=== PATIENT | female | born 1975 | race American Indian/Alaskan Native ===

== ENCOUNTER 2021-07-20 05:51 | Day surgery (SDC) | payer OTHER ==
[2021-07-20] MEDS ORDERED: fentaNYL 100 MCG/2 ML INJ IV PRN (06:00)
[2021-07-20] MEDS ORDERED: GABAPENTIN 300 MG CAP PO NR (06:00)
[2021-07-20] MEDS ORDERED: LACTATED RINGERS 1,000 ML IV SCH (06:00)
[2021-07-20] MEDS ORDERED: CELECOXIB 200 MG CAP PO NR (06:00)
[2021-07-20] MEDS ORDERED: ACETAMINOPHEN 500 MG TAB PO SCH (06:00)
[2021-07-20] MEDS ORDERED: MIDAZOLAM 2 MG/2 ML INJ IV NR (06:00)
[2021-07-20] MEDS ORDERED: SCOPOLAMINE TRANSDERMAL PATCH 72 HR TD NR (06:00)
[2021-07-20] MEDS ORDERED: methOCARBAMOL 1,000 MG in SODIUM CHLORIDE 0.9% 250ML 250 ML IV SCH (06:00)
[2021-07-20 07:12] LABS: Basophils # (Auto) 0.1 K/mm3 (0.0-0.1); Basophils % (Auto) 0.8 % (0.0-1.8); Eosinophils # (Auto) 0.3 K/mm3 (0.0-0.4); Eosinophils % (Auto) 4.9 % (0.0-4.3); Hematocrit 37.5 % (30.3-42.9); Hemoglobin 12.2 gm/dl (10.1-14.3); Lymphocytes # (Auto) 1.8 K/mm3 (1.2-5.4); Lymphocytes % (Auto) 30.1 % (13.4-35.0); Mean Corpuscular HGB Conc 33 % (30-34); Mean Corpuscular Volume 76 fl (79-97); Monocytes # (Auto) 0.5 K/mm3 (0.0-0.8); Monocytes % (Auto) 8.8 % (0.0-7.3); Platelet Count 301 K/mm3 (140-440); Red Blood Count 4.91 M/mm3 (3.65-5.03); Red Cell Distribution Width 17.4 % (13.2-15.2)
[2021-07-20] MEDS ORDERED: propofoL 200 MG/20 ML VIAL IV ONE (07:13)
[2021-07-20] MEDS ORDERED: HYDROmorphone 1 MG/1 ML INJ ONE (07:13)
[2021-07-20] MEDS ORDERED: LIDOCAINE MPF (2%) 20 MG/1 ML VIAL 5 ML ONE (07:13)
[2021-07-20] MEDS ORDERED: ROCURONIUM 50 MG/5 ML INJ IV ONE (07:18)
[2021-07-20] MEDS ORDERED: dexAMETHasone 4 MG/ML VIAL ONE (07:20)
[2021-07-20] MEDS ORDERED: cloNIDine/PF 1,000 MCG/10 ML VIAL EP ONE (07:21)
[2021-07-20] MEDS ORDERED: BUPIVACAINE-EPINEPHRINE/PF 0.25%-1:200,000 (30 ML) VIAL INFILTRATI ONE (07:21)
--- NOTE | 2021-07-20 07:43 | Short Stay Summary ---
Short Stay Documentation Date of service: 07/20/21 Narrative H&P: 45y/o with dysfunctional uterine bleeding and uterine fibroids. Recent ultrasound demonstrated an enlarged fibroid uterus measuring 14.6cm. The experiences heavy bleeding and pain with menses. She has elected for definitive surgical management. - History Principal diagnosis: Uterine fibroids Past Medical History: DVT, migraines, other (fibroids) Past Surgical History: , Other (sinus; tubal ligation) Social history: single - Allergies and Medications Current Medications: Allergies latex Allergy (Verified 07/18/21 16:25) Itching nickel Allergy (Verified 07/18/21 16:25) Rash Home Medications Medication Instructions Recorded Confirmed Last Taken Type Escitalopram [Lexapro] 10 mg PO DAILY 07/18/21 07/18/21 Unknown History Omeprazole 40 mg PO DAILY 07/18/21 07/18/21 Unknown History Active Medications Acetaminophen (Acetaminophen 500 Mg Tab) 1,000 mg PO PREOP GLENN Stop: 07/20/21 20:00 Celecoxib (Celecoxib 200 Mg Cap) 200 mg PO PREOP NR Stop: 07/20/21 20:00 Fentanyl (Fentanyl 100 Mcg/2 Ml Inj) 100 mcg IV ONCE PRN PRN Reason: sedation for nerve block Stop: 07/20/21 20:00 Gabapentin (Gabapentin 300 Mg Cap) 300 mg PO PREOP NR Stop: 07/20/21 20:00 Methocarbamol 1,000 mg/ Sodium (Chloride) 260 mls @ 250 mls/hr IV PREOP GLENN Stop: 07/20/21 20:00 Lactated Ringer's (Lactated Ringers) 1,000 mls @ 100 mls/hr IV DIRECT GLENN Stop: 07/20/21 23:59 Midazolam HCl (Midazolam 2 Mg/2 Ml Inj) 2 mg IV PREOP NR Stop: 07/20/21 20:00 Scopolamine (Scopolamine Transdermal Patch 72 Hr) 1 each TD PREOP NR Stop: 07/20/21 20:00 - Physical exam General appearance: no acute distress Integumentary: no rash HEENT: Atraumatic Lungs: Clear to auscultation Breasts: deferred Heart: Regular rate Gastrointestinal: normal Female Genitourinary: deferred Rectal Exam: deferred - Brief post op/procedure progress note Date of procedure: 05/25/22 Pre-op diagnosis: Dysfunctional uterine bleeding; symptomatic uterine fibroid Post-op diagnosis: same Procedure: Robotic hysterectomy and bilateral salpingo-oophorectomy Anesthesia: MONIQUE Surgeon: BETH SIMMS Estimated blood loss: other (100 mL) Pathology: list (Uterus, cervix, bilateral tubes, bilateral ovaries) Specimen disposition: to lab Condition: stable - Hospital course Hospital course: The patient was admitted the day of surgery underwent a robotic hysterectomy and BSO. Please see operative note for details of surgery. Her postoperative course was uneventful. - Disposition Condition at discharge: Good Disposition: 01 HOME / SELF CARE / HOMELESS Short Stay Discharge Plan Activity: other (Pelvic rest for 6 weeks) Diet: regular Additional Instructions: Patient has scheduled follow-up with Dr. Simms in 4 weeks No tub baths for 4 weeks but patient may shower Patient may drive in 2 weeks Pelvic rest for 6 weeks
[2021-07-20] MEDS ORDERED: METHYLENE BLUE 50 MG/10 ML AMP ONE (07:53)
[2021-07-20] MEDS ORDERED: BUPIVACAINE/PF (0.5%) 5 MG/1 ML 30 ML VIAL INFILTRATI ONE (07:53)
[2021-07-20] MEDS ORDERED: NEOMY 40 MG/POLYMYXIN B 200,000 UNITS/ML (GU) AMPULE IR ONE (07:54)
[2021-07-20] MEDS ORDERED: oxyCODONE /ACETAMINOPHEN 5-325MG TAB PO PRN (07:55)
[2021-07-20] MEDS ORDERED: ONDANSETRON 4 MG/2 ML INJ IV PRN (07:55)
[2021-07-20] MEDS ORDERED: HYDROmorphone 0.5 MG/0.5 ML INJ IV PRN (07:55)
--- NOTE | 2021-07-20 07:57 | Anesthesia Consultation ---
Anesthesia Consult and Med Hx Date of service: 07/20/21 - Airway Anesthetic Teeth Evaluation: Good ROM Head & Neck: Adequate Mental/Hyoid Distance: Adequate Mallampati Class: Class II Intubation Access Assessment: Probably Good - Pre-Operative Health Status ASA Pre-Surgery Classification: ASA1 Proposed Anesthetic Plan: General Nerve Block: TAP - Pulmonary Hx Smoking: No Hx Respiratory Symptoms: No - Cardiovascular System Hx Hypertension: No - Central Nervous System CVA: No Hx Psychiatric Problems: Yes (depression) - Endocrine Hx Renal Disease: No Hx Liver Disease: No Hx Insulin Dependent Diabetes: No Hx Non-Insulin Dependent Diabetes: No Hx Thyroid Disease: No - Additional Comments Anesthesia Medical History Comments: No hx anesthetic complications.
--- NOTE | 2021-07-20 07:57 | Anesthesia Day of Surgery ---
Anesthesia Day of Surgery - Day of Surgery Patient Examined: Yes Patient H&P Reviewed: Yes Patient is NPO: Yes
[2021-07-20] MEDS ORDERED: ceFAZolin/Water 2 GM/20 ML 2 GM/20 ML SYRINGE IV NR (08:00)
[2021-07-20] MEDS ORDERED: ePHEDrine SULFATE 50 MG/1 ML INJ ONE (08:50)
[2021-07-20] MEDS ORDERED: SODIUM CHLORIDE 0.9% IRR 1,500 ML BOTTLE IR ONE (09:12)
[2021-07-20] MEDS ORDERED: dexAMETHasone 20 MG/5 ML VIAL ONE (09:27)
[2021-07-20] MEDS ORDERED: ONDANSETRON 4 MG/2 ML INJ ONE (09:27)
[2021-07-20] MEDS ORDERED: GLYCOPYRROLATE 0.4 MG/2 ML INJ ONE (09:28)
[2021-07-20] MEDS ORDERED: KETOROLAC 30 MG/1 ML INJ ONE (09:28)
[2021-07-20] MEDS ORDERED: NEOSTIGMINE 10MG/10 ML INJ MDV ONE (09:28)
[2021-07-20] MEDS ORDERED: LACTATED RINGERS 1,000 ML ONE (09:29)
--- NOTE | 2021-07-20 09:30 | Operative Report ---
Operative Report Operative Report: Date of surgery: July 20, 2021 Preoperative diagnoses: Dysfunctional uterine bleeding; symptomatic uterine fib roid Postoperative diagnoses: Same as above Procedure: Robotic hysterectomy and bilateral salpingo-oophorectomy Surgeon: Francia Rojas M.D. Cable Tool Driller: Khai Bran Anesthesia: Gen. endotracheal anesthesia Estimated blood loss: 100 mL Pathology: Uterus, cervix, bilateral tubes and ovaries Indication: 45-year-old G 10 [id number] with a history of dysfunctional uterine bleeding and symptomatic uterine fibroids. The patient elected to undergo definitive surgical management. Procedure: The patient was taken to the operating room and given general endotracheal anesthesia without complication. She is prepped and draped in a normal sterile fashion. A bivalve speculum was placed in the patient's vagina and a single- tooth tenaculum placed on the anterior lip of the cervix. The uterus was sounded with the uterine sound. A stay suture was placed at 12 o'clock on the ectocervix. A [employer] uterine manipulator was placed in the bivalve speculum was then removed. Attention was then turned to the patient's abdomen where a 12 millimeter supra umbilical skin incision was then made. A Veress needle was placed and peritoneal entry was verified water-filled syringe. Insufflation of the peritoneal cavity was performed with CO2 gas. The 12 mm trocar was then placed under direct visualization. An additional 8 mm trocar was placed on the patient's left and right lateral side just opposite of the supraumbilical trocar. An additional 5 mm right lateral trocar was then placed as the accessory port. The Dwight Arnett device was used to close the fascia of the 12 mm incision. The patient was then placed in steep Trendelenburg. The da Bud robot was then engaged. A fenestrated forcep was placed in arm 2 and a vessel sealer was placed in arm 1. The surgeon then transferred to the surgical console. General survey revealed mildly enlarged uterus with normal tubes and ovaries bilaterally. The infundibulopelvic ligament was then isolated on the right. The vessel sealer was used to coagulate the ligament which was then transected. The tube and ovary were transected from the supply. The round ligament was then coagulated and transected also. The vesicouterine peritoneum was then entered from the patient's right side. The uterine vessels were then coagulated with the vessel sealer. The vessels were then transected . Attention was then turned to the patient's left side where the infundibulopelvic ligament and mesosalpinx were again isolated coagulated and transected. The vesical peritoneum was then entered from the left and joined in the midline. Peritoneum was reflected off of the lower uterine segment. Uterine vessels were then coagulated and then transected. The blood supply to the uterus was adequately contained, a posterior colpotomy was made. The V care ring was visualized. Posterior colpotomy was created with the monopolar scissors. The incision was continued circumferentially until anterior colpotomy was made. The cervix and uterus were amputated from the vaginal cuff. The uterus was then removed along with the tubes and ovaries bilaterally through the vagina and a warm laparotomy sponge was placed and maintain the pneumoperitoneum. The vaginal cuff was then closed in a running fashion with V lock suture. Irrigation of the pelvis was performed. Surgicel powder was applied to the incision. The skin was then reapproximated with 4-0 Monocryl. The tissue was sent to pathology which included the cervix, uterus, tubes and ovaries. The patient was then successfully extubated. She was then taken to the recovery room in stable condition. All sponge laps and needle counts were correct x2.
[2021-07-20] MEDS ORDERED: ALBUMIN HUMAN 5% (12.5 GM/250 ML) INJ IV NR (11:00)
[2021-07-20] MEDS ORDERED: SIMETHICONE 80 MG CHEW TAB PO ONE (12:35)
--- NOTE | 2021-07-20 13:44 | Post Anesthesia Evaluation ---
- Post Anesthesia Evaluation Patient Participated: Yes Airway Patent: Yes Stable Respiratory Function: Yes Nausea/Vomiting: No Temp > 96.8F: Yes Pain Manageable: Yes Adequeate Hydration: Yes (hypotensive on arrival to PACU; resolved w/ IVF. Returned to baseline. ) Anesthesia Complications: No
[2021-07-20 17:54] VITALS: BP 120/74
== END 2021-07-20 13:20 | disposition home or self-care (01) ==
LOC: OR 05:51
PROVIDERS: ATTEND Obstetrics & Gynecology
DX: N93.8 Other specified abnormal uterine and vaginal bleeding (principal); N85.8 Other specified noninflammatory disorders of uterus; N83.201 Unspecified ovarian cyst, right side; N83.202 Unspecified ovarian cyst, left side; G43.909 Migraine, unspecified, not intractable, without status migrainosus; K21.9 Gastro-esophageal reflux disease without esophagitis; F32.9 Major depressive disorder, single episode, unspecified; D64.9 Anemia, unspecified; Z91.040 Latex allergy status; Z79.899 Other long term (current) drug therapy; Z88.8 Allergy status to other drugs, medicaments and biological substances; Z98.891 History of uterine scar from previous surgery; Z72.89 Other problems related to lifestyle; Z98.890 Other specified postprocedural states
CPT/HCPCS: 36415; 58571; 64488; 81025; 85025; 86850; 86900; 86901; 88307; J0690; J0735; J1100; J1170; J1815; J1885; J2250; J2405; J2704; J2710; J2800; J3010; J3490; J7050; J7120; P9045; S2900; 64450; 88309; Q9968